=== PATIENT | female | born 1950 | race Caucasian/White ===

== ENCOUNTER → 2018-05-19 14:44 | Outpatient (CLI) | payer MEDICARE, SELFPAY ==
--- NOTE | 2018-05-19 | DI.MG.S_ITS ---
BILATERAL DIGITAL SCREENING MAMMOGRAM 3D/2D WITH CAD: 05/19/2018 CLINICAL: Routine screening. Family history of breast cancer. Comparison is made to exams dated: 04/30/2017 mammogram, 04/08/2016 mammogram, and 04/06/2015 mammogram - [facility]. There are scattered fibroglandular elements in both breasts. Current study was also evaluated with a Computer Aided Detection (CAD) system. No significant masses, calcifications, or other findings are seen in either breast. There has been no significant interval change. IMPRESSION: NEGATIVE There is no mammographic evidence of malignancy. A 1 year screening mammogram is recommended. This exam was interpreted at Station ID: [id number]. NOTE: For mammograms, a report in lay terms will be sent to the patient. Approximately 15% of breast malignancies will not be visualized mammographically. In the management of a palpable breast mass, a negative mammogram must not discourage biopsy of a clinically suspicious lesion. Electronically Signed By: Jose ye/sanford:05/20/2018 00:34:32 letter sent: Normal Exam ACR BI-RADS Category 1: Negative [id number]
== END ==
PROVIDERS: Family Provider Family Medicine; PCP Family Medicine; Visit Provider Family Medicine
DX: Z12.31 Encounter for screening mammogram for malignant neoplasm of breast (principal); Z80.3 Family history of malignant neoplasm of breast
CPT/HCPCS: 77063; 77067

== ENCOUNTER → 2018-07-08 11:17 | Outpatient (CLI) | payer MEDICARE, SELFPAY ==
--- NOTE | 2018-07-08 11:27 | DI.RAD.S_ITS ---
PROCEDURE: XR LUMBAR SPINE MIN 4V INDICATIONS: Spinal stenosis, site unspecified TECHNIQUE: 5 views of the lumbar spine were acquired. COMPARISON: None. FINDINGS: Bones: No fracture or focal osseous destruction. Severe diffuse facet arthropathy. Grade I anterolisthesis of L4 on L5. There is dextrocurvature centered at L2. [id number] diffuse lumbar disc space narrowing throughout the lumbar spine. Endplate spurring and sclerosis is noted.. Soft tissues: Overlying bowel gas pattern is normal. No suspicious soft tissue calcifications. Oblique images: No pars defects. IMPRESSION: Diffuse mild to moderate lumbar disc degeneration and dextrocurvature centered at L2. Multilevel facet arthropathy. Dictated by: Rafal Jha M.D. on 07/08/2018 at 14:41 Approved by: Rafal Jha M.D. on 07/08/2018 at 14:43
== END ==
PROVIDERS: PCP Family Medicine; Visit Provider Physical Medicine & Rehabilitation
DX: M47.817 Spondylosis without myelopathy or radiculopathy, lumbosacral region (principal); M47.816 Spondylosis without myelopathy or radiculopathy, lumbar region; M48.061 Spinal stenosis, lumbar region without neurogenic claudication; M43.16 Spondylolisthesis, lumbar region; F43.10 Post-traumatic stress disorder, unspecified; E66.9 Obesity, unspecified; Z68.39 Body mass index [BMI] 39.0-39.9, adult
CPT/HCPCS: 72110; 99214

== ENCOUNTER → 2018-07-15 12:45 | Outpatient (CLI) | payer MEDICARE, SELFPAY ==
--- NOTE | 2018-07-15 13:14 | DI.MRI.S_ITS ---
PROCEDURE: MR LUMBAR SPINE WO CON INDICATIONS: Eval TECHNIQUE: Noncontrast sagittal T1 spin echo and T2 fast echo, sagittal STIR, axial T1 and T2 fast spin echo through the lumbar spine. In cases with scoliosis, additional coronal T2 fast spin echo may be performed. COMPARISON: None. FINDINGS: Image quality: Excellent. Alignment and Curvature: There is normal bony alignment. Bone Marrow: Severe L5-S1 disc degeneration and associated endplate signal change No acute vertebral body compression fractures. Spinal Cord: Conus medullaris terminates at the L2 level. Visualized cord demonstrates normal signal and size. Paraspinous Soft Tissues: No paravertebral masses. Mild posterior disc bulge at T11-T12. L1-L2: Bilateral facet disease. No foraminal stenosis. No canal stenosis. L2-L3: Minimal broad-based posterior disc bulge bilateral facet disease. No canal stenosis. No foraminal narrowing. L3-L4: Broad-based posterior disc bulge, posterior annular fissure and bilateral facet arthropathy. No central canal stenosis. There is also a symmetric partial effacement of the left and right lateral recesses, no definite foraminal narrowing. L4-L5: Broad-based left lateral disc bulge. Bilateral facet arthropathy. There is mild canal narrowing due in part due to dorsal epidural lipomatosis. Mild asymmetric left lateral recess narrowing. Mild left foraminal stenosis, and is no right foraminal narrowing. L5-S1: Central disc osteophyte complex with no definite canal narrowing. Lateral recesses appear patent. Moderate right and mild left foraminal stenosis. IMPRESSION: No high-grade canal stenosis. Moderate right L5-S1 foraminal narrowing. Dictated by: Rafal Jha M.D. on 07/15/2018 at 14:08 Approved by: Rafal Jha M.D. on 07/15/2018 at 14:37
== END ==
PROVIDERS: PCP Family Medicine; Visit Provider Physical Medicine & Rehabilitation
DX: M47.817 Spondylosis without myelopathy or radiculopathy, lumbosacral region (principal); M48.07 Spinal stenosis, lumbosacral region; M51.26 Other intervertebral disc displacement, lumbar region
CPT/HCPCS: 72148

== ENCOUNTER 2018-08-10 12:26 | Outpatient (CLI) | payer MEDICARE, SELFPAY ==
[2018-08-10] VITALS (9 sets, daily range): BP systolic 117–153; BP diastolic 53–72; PULSE 51–64; RESP 11–20; TEMP 36.2; O2SAT 93–97
--- NOTE | 2018-08-10 12:28 | DI.RAD.S_ITS ---
PROCEDURE: PAIN L/SI FACET INJ/BLK 1STL INDICATIONS: SPONDYLOSIS FINDINGS: Fluoroscopic spot filming was performed to verify placement of spinal needles at the L4-L5 and L5-S1 level(s), as labeled on the films. Appropriate location(s) of the needle tip(s) was confirmed by injection of iodinated contrast. Dictated by: Rafal Jha M.D. on 08/10/2018 at 16:47 Approved by: Rafal Jha M.D. on 08/10/2018 at 16:49
[2018-08-10] MEDS: MIDAZOLAM 5 MG/5 ML VIAL IV (13:12)
[2018-08-10] MEDS: IOPAMIDOL 15 ML VIAL 3 ML INJ (13:24)
[2018-08-10] MEDS: BUPIVACAINE 0.5% (PF) VIAL 2 ML INJ (13:24)
[2018-08-10] MEDS: BETAMETHASONE 30 MG/5 ML MDV 12 MG INJ (13:25)
[2018-08-10] MEDS: LIDOCAINE 1% 20 ML INJ 10 ML INJ (13:25)
--- NOTE | 2018-08-10 13:33 | PC.NURSE ---
pt finished procedure, tolerated it well. minimal assist needed to get from table to Wheelchair. Taken to pre procedure room via w/c and handed off to Krista DIAZ for continued monitoring.
--- NOTE | 2018-08-11 12:51 | PC.NURSE ---
FOLLOW UP CALL MADE. PT STATES PAIN HAS INCREASED SINCE LAST NIGHT BUT DECREASED SINCE THIS AM. I EXPLAINED THAT INCREASED PAIN AFTER THE PROCEDURE IS COMMON FOR THE 1ST 24 HRS. PT ALSO STATED THAT SHE HAD INSOMNIA LAST NIGHT BUT ALSO THE SHE UNDERSTANDS THIS IS A COMMON SIDE EFFECT EXPLAINED TO HER. DENIES OTHER CONCERNS.
--- NOTE | 2018-08-17 15:56 | P.PCN_ITS ---
Procedures Date/Time Date of procedure: 08/10/18 Time of procedure: 14:28 General Procedure description: PREOP DIAGNOSIS 1. FACET ARTHROPATHY 2. AXIAL LBP 3. MULTILEVEL DDD POST OP DIAGNOSIS 1. FACET ARTHROPATHY 2. AXIAL LBP 3. MULTILEVEL DDD PROCEDURES 1. FLUORSCOPICALLY GUIDED CONTRAST CONTROLLED FACET JOINT INJECTIONS BILATERAL L4/5, L5/S1 PHYSICIAN: Hugh Carolina, DO INDICATIONS Belem is referred by Dr. Cat for treatment of Axial LBP FINDINGS Multilevel Facet Arthropathy with Clinically significant axial LBP DESCRIPTION OF PROCEDURE Fluoroscopically guided, contrast-controlled bilateral L4/5, L5/S1 facet joint injections. Following denial of allergy and review of potential side effects and complications, including, but not necessarily limited to, infection, allergic reaction, local tissue breakdown, stroke, temporary or permanent nerve injury, paralysis, and possible , the patient indicated that the patient understood and agreed to proceed. An informed consent document was signed by the patient, witnessed by a nurse, and placed in the patient's chart. Additionally, other treatment options including medications, modalities, and physical therapy were reviewed with the patient. After review of previous anaesthesic history and IV conscious sedation the patient was deemed safe to proceed with todays procedure with IV conscious sedation as ASA class II designation. Safety time-out was performed to confirm patient ID, procedure to be performed and site of procedure. IV sedation was accomplished with a combination of 3mg was administered by the RN after DO order , titrated to patient comfort during the course of the procedure while the patient remained responsive to all verbal commands In the prone position, following sterile prep and drape of the lumbar region, the posterior aspect of the L4/5, L5/S1 facet joints were identified fluoroscopically. The skin was anesthetized via a 25-gauge 1.5-inch needle with 1% lidocaine solution into the corresponding facet joints. At this point, a 22-gauge 3.5-inch spinal needle was atraumatically introduced and advanced under fluoroscopic guidance into the corresponding facet joints. Following negative aspiration, injections of approximately 0.2-cc of Isovue 200 confirmed interarticular placement without vascular uptake. The identical procedure was then performed at the L4/5, L5/S1 facet joints on the left. Radiological data, including multiple fluoroscopic views of the lumbosacral spine, reveal a spinal needle at the L4/5, L5/S1 facet joints bilaterally. Subsequent views show flow of contrast material both superiorly and inferiorly within the joint space without vascular or intrathecal uptake. At this point, a total of 0.5 cc including a mixture of 0.25cc Marcaine and 0.25cc betamethasone was injected without complication into each of the corresponding facet joints. The patient tolerated the procedure well without signs or symptoms of complications prior to transfer to the recovery area continued monitoring without incident. The patient was then transferred to the recovery area where they were observed for an appropriate period of time after the injection. The patient reported a VAS score of 7 prior to the procedure and a post- procedure VAS of 0. Total Fluoroscopy Time: 20.3 seconds Total Conscious Sedation Time: 24min POST OP INSTRUCTIONS The patient was provided a Pain Log to continue to record their response to the target-specific procedure prior to follow-up visit with their referring physician. Additionally, specific post-injection care instructions and a contact number to our office were provided if concerns arise regarding possible complications associated with the procedure are suspected. Hugh Carolina, Complications: none
== END 2018-08-10 14:06 | disposition home or self-care (01) ==
LOC: RAD 12:28
PROVIDERS: PCP Family Medicine; Visit Provider Physical Medicine & Rehabilitation
DX: M47.817 Spondylosis without myelopathy or radiculopathy, lumbosacral region (principal); M51.36 Other intervertebral disc degeneration, lumbar region; M51.37 Other intervertebral disc degeneration, lumbosacral region; M48.062 Spinal stenosis, lumbar region with neurogenic claudication; M54.5 Low back pain
CPT/HCPCS: 64493; 64494; 99152; J0702; J2250

== ENCOUNTER 2018-11-10 09:40 | Outpatient (CLI) | payer MEDICARE, SELFPAY ==
[2018-11-10] VITALS (8 sets, daily range): BP systolic 95–137; BP diastolic 59–80; PULSE 59–66; RESP 16–18; TEMP 36.5; O2SAT 93–96
--- NOTE | 2018-11-10 09:42 | DI.RAD.S_ITS ---
PROCEDURE: PAIN L/SI FACET INJ/BLK 1STL INDICATIONS: SPONDYLOSIS FINDINGS: Fluoroscopic spot filming was performed to verify placement of spinal needles at the L4, L5, S1 level(s), as labeled on the films. Appropriate location(s) of the needle tip(s) was confirmed by injection of iodinated contrast. Dictated by: Rafal Jha M.D. on 11/10/2018 at 17:24 Approved by: Rafal Jha M.D. on 11/10/2018 at 17:25
[2018-11-10] MEDS: MIDAZOLAM 5 MG/5 ML VIAL IV (10:05)
[2018-11-10] MEDS: fentaNYL 100 MCG/2 ML INJ 50 MCG IV (10:05)
[2018-11-10] MEDS: IOPAMIDOL 15 ML VIAL 3 ML INJ (10:14)
[2018-11-10] MEDS: BUPIVACAINE 0.5% (PF) VIAL 2 ML INJ (10:14)
[2018-11-10] MEDS: LIDOCAINE 1% 20 ML INJ INJ (10:15)
[2018-11-10] MEDS: BETAMETHASONE 30 MG/5 ML MDV 12 MG INJ (10:15)
--- NOTE | 2018-11-10 10:34 | P.PCN_ITS ---
Procedures Date/Time Date of procedure: 11/10/18 Time of procedure: 10:33 General Procedure description: Procedure description: 1. FACET ARTHROPATHY PROCEDURES: 1. BILATERAL- L4, L5 and S1 MB BLOCKS PHYSICIAN: Hugh Carolina, DO SPAULDING Belem is referred by Dr. Cat for treatment of Bilateral Axial LBP. DESCRIPTION OF PROCEDURE Fluoroscopically guided, contrast-controlled bilateral L4, L5 and S1 medial branch blocks with 0.5cc of 0.5% Marcaine. Following denial of allergy and review of potential side effects and complications, including, but not necessarily limited to, infection, allergic reaction, local tissue breakdown, nerve injury, paralysis, stroke and possible , the patient indicated that the patient understood and agreed to proceed. An informed consent document was signed by the patient, witnessed by a nurse, and placed in the patient's chart. After review of previous anaesthesic history and IV conscious sedation the patient was deemed safe to proceed with todays procedure with IV conscious se dation as ASA class II designation. Safety time-out was performed to confirm patient ID, procedure to be performed and site of procedure. IV sedation was accomplished with a combination of 3mg of Versed and 50mcg of Fentanyl was administered by the RN after DO order, titrated to patient comfort during the course of the procedure while the patient remained responsive to all verbal commands In the prone position, following sterile prep and drape of the lumbar region, the right L4, L5 and S1 anatomical location of the medial branch of the dorsal ramus was identified fluoroscopically. Subsequently an anesthetic skin wheal using 1% lidocaine solution was initiated at each of the anatomical spots. Subsequently then a 22-gauge 3.5-inch spinal needle was atraumatically introduced and advanced under fluoroscopic guidance at each of the corresponding sites at the right L4, L5 and S1 MB. After negative aspiration, 0.2 cc of Isovue 200 was injected, confirming placement without vascular or intrathecal uptake. Subsequently then 0.5 cc of 0.5% Marcaine solution was injected at each of the corresponding sites at the right L4, L5 and S1 medial branch locations. The identical procedure was replicated on the left. The patient tolerated the procedure well without signs or symptoms of complications prior to transfer to the recovery area continued monitoring without incident. Post-procedure, the patient was monitored initiating provocative activities to measure the amount of relief from block of the facetogenic pain. The patient reported a VAS of 7 prior to the procedure and a post-procedure VAS of 1. It has been a pleasure to assist in the diagnostic and therapeutic care of your patient. Total Fluoroscopy Time: 24.8 seconds Total Conscious Sedation Time: 24min POST OP INSTRUCTIONS The patient was provided with a Pain Log to complete over the next several hours and subsequent days prior to the patient's follow up with the ordering physician. If the patient has educational psychology professor relief to the solution applied, then they may be a candidate for medial branch rhizotomy. The patient is aware, was provided, once again, with a Pain Log and will follow up with the referring physician for review and clinical correlation Hugh Carolina DO Complications: none
--- NOTE | 2018-11-10 10:34 | PC.NURSE ---
pt tolerated procedure well. Able to get off table on own with stand by assist. Transferred patient via w/c to pre procedure room for continued monitoring with Krista DIAZ.
== END 2018-11-10 10:54 | disposition home or self-care (01) ==
LOC: RAD 09:41
PROVIDERS: PCP Family Medicine; Visit Provider Physical Medicine & Rehabilitation
DX: M47.817 Spondylosis without myelopathy or radiculopathy, lumbosacral region (principal)
CPT/HCPCS: 64493; 64494; 99152; J0702; J2250; J3010

== ENCOUNTER 2019-01-11 11:08 | Outpatient (CLI) | payer MEDICARE, SELFPAY ==
[2019-01-11] VITALS (11 sets, daily range): BP systolic 115–142; BP diastolic 65–82; PULSE 67–86; RESP 16–18; TEMP 36.1; O2SAT 93–98
--- NOTE | 2019-01-11 11:10 | DI.RAD.S_ITS ---
PROCEDURE: PAIN L/S MED/LAT N RFA INDICATIONS: SPONDYLOSIS FINDINGS: Fluoroscopic spot filming was performed to verify placement of spinal needles at the L4, L5 and S1 level(s), as labeled on the films. Appropriate location(s) of the needle tip(s) was confirmed by injection of iodinated contrast. IMPRESSION: Fluoroscopy for pain management. Dictated by: Antonio Barr M.D. on 01/11/2019 at 12:58 Approved by: Antonio Barr M.D. on 01/11/2019 at 12:58
[2019-01-11] MEDS: MIDAZOLAM 5 MG/5 ML VIAL IV (11:56)
[2019-01-11] MEDS: BETAMETHASONE 30 MG/5 ML MDV 12 MG INJ (12:18)
[2019-01-11] MEDS: BUPIVACAINE 0.5% (PF) VIAL 2 ML INJ (12:18)
[2019-01-11] MEDS: LIDOCAINE 1% 20 ML INJ 10 ML INJ (12:18)
--- NOTE | 2019-01-11 12:31 | PC.NURSE ---
ASSISTING PT OFF TABLE AND TRANSPORTING TO POST PROC AREA IN STABLE CONDITION
--- NOTE | 2019-01-11 12:40 | P.PCN_ITS ---
Procedures Date/Time Date of procedure: 01/11/19 Time of procedure: 12:37 General Procedure description: PREOP DIAGNOSIS 1. RECALCITRANT FACET ARTHROPATHY, POST OP DIAGNOSIS 1. RECALCITRANT FACET ARTHROPATHY, PROCEDURES 1. RIGHT L4 AND L5 MEDIAL BRANCH RADIOFREQUENCY NEUROTOMY AND RIGHT S1 DORSAL RAMUS BRANCH RADIOFREQUENCY NEUROTOMY, SURGEON: Hugh Carolina, DO INDICATIONS Belem is referred by for treatment of facet arthropathy. DESCRIPTION OF PROCEDURE Right L4 and L5 medial branch radiofrequency neurotomy and right S1 dorsal ramus branch radiofrequency neurotomy under fluoroscopy with conscious sedation. The patient is well known to this clinic having undergone previous facet injections with good but temporary relief. The patient has experienced appropriate, concordant relief with previous facet and median branch blocks but the patient's pain has been recalcitrant to further conservative measures. Therefore, based upon the patient's relief and persistent symptoms, the patient is considered an appropriate candidate for facet rhizotomy. All of the patient's questions regarding the risks versus benefits of the procedure, including, but not limited to, bleeding, infection, temporary as well as lasting nerve injury, paralysis, stroke, and , as well treatment alternatives were answered to satisfaction. After review of previous anaesthesic history and IV conscious sedation the patient was deemed safe to proceed with todays procedure with IV conscious sedation as ASA class II designation. Safety time-out was performed to confirm patient ID, procedure to be performed and site of procedure. IV sedation was accomplished with a combination of 4mg of Versed was administered by the RN after DO order, titrated to patient comfort during the course of the procedure while the patient remained responsive to all verbal commands. After obtaining informed consent, denial of pertinent drug allergies, as well as being made aware of the potential risks of bleeding, infection, spinal cord trau ma, paralysis, temporary and permanent nerve damage, seizure, stroke, and possible , the patient was brought to the fluoroscopy suite and positioned prone on the fluoroscopy table. The lumbar region was prepped with Betadine and covered with a fenestrated drape in the usual sterile fashion. Appropriate monitors applied including pulse oximeter, pulse, and blood pressure for regular monitoring throughout the procedure. After local infiltration using 1% lidocaine, under fluoroscopic guidance, a 15- cm RF insulated needle with a 10-mm active tip was positioned parallel to the junction of the right sacral ala and the superior articulating process where the S1 dorsal ramus resides. Needle placement was confirmed with sensory stimulation at 50 Hz, with motor stimulation of .5v on the right which produced local stimulation without radicular component. The stimulation was then increased to 1.5v with, once again, only local multifidus stimulation without radicular component. This was then followed by two discreet lesions performed at 80 degrees Celsius for 90 seconds each. The needle was then removed and the identical procedure was performed along the length of the right L5 medial branch with motor stimulation at .7v on the right. The identical procedure was once again performed along the length of the right L4 medial branch with motor stimulation of .5v on the right. The patient tolerated the procedure well without signs or symptoms of complications prior to transfer to the recovery area continued monitoring without incident. The patient was then transferred to the recovery area where they were observed for an appropriate period of time after the injection. The patient was then transferred to the recovery area where they were observed for an appropriate period of time after the injection. The patient reported a VAS score of 9 prior to the procedure and a post- procedure VAS of 0. Total Fluoroscopy Time: 31 seconds Total Conscious Sedation Time: 45min POST OP INSTRUCTIONS The patient was provided a Pain Log to continue to record the patient's response to the target-specific procedure prior to the patient's follow-up visit with the referring physician. Additionally, specific post-injection care instructions and a contact number to our office were provided if concerns arise regarding possible complications associated with the procedure are suspected. Hugh Carolina DO Complications: none
--- NOTE | 2019-01-11 13:22 | PC.NURSE ---
Pt returned from procedure awake and alert, able to move from W/C to chair with minimal assist. Resumed monitoring from Krista DIAZ.
--- NOTE | 2019-01-12 16:23 | PC.NURSE ---
Follow up call made post Rhizotomy. Pt reports doing good. Said she was doing dishes at the sink and had a slight twinge but it went away. Otherwise she is doing well.
== END 2019-01-11 12:59 ==
LOC: RAD 11:09
PROVIDERS: PCP Family Medicine; Visit Provider Physical Medicine & Rehabilitation
DX: M47.817 Spondylosis without myelopathy or radiculopathy, lumbosacral region (principal)
CPT/HCPCS: 64635; 64636; 99152; J0702; J2250; J3010

== ENCOUNTER → 2019-02-24 16:43 | Outpatient (CLI) | payer MEDICARE, SELFPAY ==
--- NOTE | 2019-02-24 16:47 | DI.MRI.S_ITS ---
PROCEDURE: MR CERVICAL SPINE WO CON INDICATIONS: Bilateral shoulder soreness. Right 3-5th digit numbness TECHNIQUE: Noncontrast sagittal T1 spin echo and T2 fast spin echo, sagittal STIR, foraminal oblique sagittal T2 fast spin echo, and axial gradient echo or T2 fast spin echo through the cervical spine. COMPARISON: None. FINDINGS: Image quality: Excellent. Alignment and Curvature: There is a trace amount approximately 1 mm of C6-C7 and C7-T1 anterolisthesis. Bone Marrow: Marrow demonstrates normal overall signal. Spinal Cord: Visualized spinal cord has normal size and signal. No cerebellar tonsillar herniation. Paraspinous Soft Tissues: No paravertebral masses. Prevertebral soft tissues are normal in thickness. C2-C3: Normal appearance. C3-C4: Slight loss of disc signal. Minimal, diffuse disc bulge. Mild right and moderate left facet hypertrophy. No central stenosis. Mild right and moderate left neural foraminal narrowing. No neural impingement. C4-C5: Loss of disc signal. Moderate right and mild left facet hypertrophy. No central stenosis. Mild bilateral neural foraminal narrowing. No neural impingement. C5-C6: Loss of disc signal. Mild, diffuse disc bulge. Small central disc protrusion. Mild bilateral facet hypertrophy. No central stenosis. Mild bilateral neural foraminal narrowing. No neural impingement. C6-C7: Loss of disc signal. Mild, diffuse disc bulge. Small central disc protrusion. Mild bilateral facet hypertrophy. No central stenosis. Mild left neural foraminal narrowing. No neural impingement. C7-T1: Loss of disc signal. Mild, diffuse disc bulge. Moderate right facet hypertrophy. No central stenosis. Mild right neural foraminal narrowing. No neural impingement. IMPRESSION: 1. Multilevel degenerative disc disease 2. Multilevel facet arthropathy. 3. No central stenosis. 4. Mild right and moderate left C3-C4 neural foraminal narrowing. Mild bilateral C4-C5 and C5-C6 neural foraminal narrowing. Mild left C6-C7 neural foraminal narrowing. Mild right C7-T1 neural foraminal narrowing. 5. No neural impingement. Dictated by: Marialuisa Qureshi MD, PhD on 02/25/2019 at 8:40 Approved by: Marialuisa Qureshi MD, PhD on 02/25/2019 at 8:45
== END ==
PROVIDERS: PCP Family Medicine; Visit Provider Registered Nurse
DX: M25.511 Pain in right shoulder (principal); M25.512 Pain in left shoulder; M50.322 Other cervical disc degeneration at C5-C6 level; M47.812 Spondylosis without myelopathy or radiculopathy, cervical region; M48.02 Spinal stenosis, cervical region
CPT/HCPCS: 72141

== ENCOUNTER → 2019-07-16 09:55 | Outpatient (CLI) | payer MEDICARE, SELFPAY | PROVIDERS: PCP Family Medicine; Visit Provider Family Medicine | DX: Z12.31 Encounter for screening mammogram for malignant neoplasm of breast (principal); Z53.9 Procedure and treatment not carried out, unspecified reason ==

== ENCOUNTER → 2019-08-10 10:04 | Outpatient (CLI) | payer MEDICARE, SELFPAY ==
--- NOTE | 2019-08-10 | DI.US.S_ITS ---
ULTRASOUND OF RIGHT BREAST: 08/10/2019 CLINICAL: Focal right breast pain. Comparison is made to exams dated: 08/10/2019 mammogram, 05/19/2018 mammogram, 04/30/2017 mammogram, and 04/08/2016 mammogram - [facility]. Real-time ultrasound of the right breast was performed. Sena scale images of the real-time examination were reviewed. No significant abnormalities were seen sonographically in the right breast. IMPRESSION: BENIGN There is no sonographic evidence of malignancy. There is no abnormality seen in the right breast to correspond with the area of clinical concern, palpable abnormality, and pain at 3 o'clock in the middle depth, however, clinical followup is recommended for continued symptomatology. A 1 year screening mammogram is recommended. This exam was interpreted at Station ID: [id number]. Electronically Signed By: Johann Pope M.D. aty/:08/10/2019 11:05:36 letter sent: Normal Exam Ultrasound BI-RADS: 2 Benign
--- NOTE | 2019-08-10 | DI.MG.S_ITS ---
BILATERAL DIGITAL DIAGNOSTIC MAMMOGRAM 3D/2D: 08/10/2019 CLINICAL: Right breast lumps. Comparison is made to exams dated: 05/19/2018 mammogram, 04/30/2017 mammogram, 04/08/2016 mammogram, and 04/06/2015 mammogram - [facility]. There are scattered fibroglandular elements in both breasts. No significant masses, calcifications, or other findings are seen in either breast. IMPRESSION: INCOMPLETE: NEEDS ADDITIONAL IMAGING EVALUATION There is no abnormality seen in the right breast to correspond with the area of clinical concern, palpable abnormality, and pain at 3 o'clock in the middle depth, however, further evaluation with sonogram is recommended which is scheduled to immediately follow this examination. This exam was interpreted at Station ID: [id number]. NOTE: For mammograms, a report in lay terms will be sent to the patient. Approximately 15% of breast malignancies will not be visualized mammographically. In the management of a palpable breast mass, a negative mammogram must not discourage biopsy of a clinically suspicious lesion. Electronically Signed By: Johann Pope M.D. aty/:08/10/2019 11:04:07 ACR BI-RADS Category 0: Incomplete [id number]
== END ==
PROVIDERS: PCP Family Medicine; Visit Provider Physician Assistant Medical
DX: R92.8 Other abnormal and inconclusive findings on diagnostic imaging of breast (principal); N63.15 Unspecified lump in the right breast, overlapping quadrants; N64.4 Mastodynia
CPT/HCPCS: 76642; 77066; G0279

== ENCOUNTER → 2019-10-25 10:27 | Outpatient (CLI) | payer MEDICARE, SELFPAY ==
--- NOTE | 2019-10-25 10:31 | DI.RAD.S_ITS ---
PROCEDURE: XR CERVICAL SPINE 4V OR 5V INDICATIONS: axial cervical neck pain TECHNIQUE: 5 views of the cervical spine acquired. COMPARISON: [facility], MR, MR CERVICAL SPINE WO CON, 02/24/2019, 17:02. FINDINGS: Bones: No fractures or dislocations to the T2 level. Oblique images demonstrate mild bilateral bony foraminal stenoses which are most prominent at C3-4 and C4-5. No acute compression fractures. Moderate multilevel cervical spondylosis throughout the imaged spine with moderate to severe bilateral facet arthropathy. Soft tissues: No prevertebral soft tissue swelling. IMPRESSION: 1. Cervical spine without acute fracture or dislocation. 2. Moderate multilevel cervical spondylosis with moderate-severe facet arthropathy, and mild bilateral neuroforaminal stenosis. Dictated by: Johann Pope M.D. on 10/25/2019 at 16:07 Approved by: Johann Pope M.D. on 10/25/2019 at 16:11
== END ==
PROVIDERS: PCP Family Medicine; Referring Provider Registered Nurse; Visit Provider Registered Nurse
DX: M54.2 Cervicalgia (principal); M47.812 Spondylosis without myelopathy or radiculopathy, cervical region; M48.02 Spinal stenosis, cervical region; M47.817 Spondylosis without myelopathy or radiculopathy, lumbosacral region; M47.816 Spondylosis without myelopathy or radiculopathy, lumbar region; E66.9 Obesity, unspecified; M48.00 Spinal stenosis, site unspecified; F43.10 Post-traumatic stress disorder, unspecified
CPT/HCPCS: 72050; 99213

== ENCOUNTER → 2021-02-13 09:58 | Outpatient (CLI) | payer MEDICARE, SELFPAY ==
[2021-02-13 12:21] LABS: COVID19 -Nasal RAPID Negative (Negative)
== END ==
PROVIDERS: PCP Family Medicine; Visit Provider Student in an Organized Health Care Education/Training Program
DX: Z20.822 Contact with and (suspected) exposure to COVID-19 (principal)
CPT/HCPCS: 87635; C9803

== ENCOUNTER → 2021-02-14 13:23 | Outpatient (CLI) | payer MEDICARE, SELFPAY ==
--- NOTE | 2021-02-14 | DI.ECHO.S_ITS ---
[facility] +---------+ : : [address] : : : : [id number] : : : : Phone: [phone]---------+ Echocardiogram Report + + :Name: CARLTON CASILLAS Study Date: 02/14/2021 Height: 65 in : :[facility] ReadingLocation: Weight: 263 lb : : Gender: Female BSA: 2.2 m2 : :: 1950 Age: 70 yrs BP: 166/82 mmHg: :Reason For Study: Dyspnea : :Ordering Physician: RISHABH, : :JOEL Performed By: Henri Shearer : :Referring: JOEL KEATING : + + Interpretation Summary The left ventricle is normal in size and wall thickness. Left ventricular systolic function is normal. The ejection fraction is estimated to be 60-65%. There are no focal wall motion abnormalities. Diastolic parameters suggest a relaxation abnormality of the left ventricle, consistent with probable normal filling pressures. The right ventricle is normal in size and function. Pulmonary artery pressures cannot be estimated because of the lack of a measurable TR jet velocity but the IVC suggests a CVP of around 3 mmHg. Both atria are normal in size. There is no significant valvular heart disease. The aortic root is normal size. Procedure: A two-dimensional transthoracic echocardiogram with color flow and Doppler was performed. The study quality was technically adequate. There is no prior echocardiogram noted for this patient. The patient was in sinus rhythm with heart rates between 67-79 bpm during the exam. Left Ventricle: The left ventricle is normal in size and wall thickness. Left ventricular systolic function is normal. The ejection fraction is estimated to be 60-65%. There are no focal wall motion abnormalities. Diastolic parameters suggest a relaxation abnormality of the left ventricle, consistent with probable normal filling pressures. Right Ventricle: The right ventricle is normal in size and function. Atria: Both atria are normal in size. There is no Doppler evidence for an interatrial shunt. Mitral Valve: The mitral valve is normal in structure and function. There is no mitral regurgitation noted. Aortic Valve: The aortic valve is normal in structure and function. No aortic regurgitation is present. Tricuspid Valve: The tricuspid valve is normal in structure and function. There is a trace or physiologic amount of tricuspid regurgitation. Pulmonary artery pressures cannot be estimated because of the lack of a measurable TR jet velocity but the IVC suggests a CVP of around 3 mmHg. Pulmonic Valve: The pulmonic valve is not well visualized. There is no pulmonic valvular regurgitation. There is no significant valvular heart disease. Great Vessels: The aortic root is normal size. The dimensions of the ascending aorta are normal. The IVC is of normal diameter and collapses greater than 50% with a sniff. This suggests a low right atrial pressure of 3 mm Hg. Pericardium/ Pleura There is no pericardial effusion. There is no pleural effusion. MMode/2D Measurements & Calculations LVIDd: 5.3 cm LVOT diam: 2.4 cm LVIDs: 3.9 cm Ao root diam: 3.4 cm FS: 27.9 % asc Aorta Diam: 3.3 cm IVSd: 1.2 cm LVPWd: 0.96 cm LV snyedr. diameter/BSA (cm/m^2): 2.4 LV sys. diameter/BSA (cm/m^2): 1.7 LA A2 area: 11.4 cm2 RA area: 11.5 cm2 LA A4 area: 13.0 cm2 IVC diam: 1.4 cm LA length (vol): 4.1 cm LA vol: 30.9 ml LA vol index: 13.9 ml/m2 TAPSE: 2.1 cm Doppler Measurements & Calculations Ao V2 max: 136.8 cm/sec LVOT Max Enrrique: 99.9 cm/sec Ao V2 mean: 97.0 cm/sec LV V1 max P.0 mmHg Ao max P.5 mmHg LV V1 VTI: 16.3 cm Ao mean P.2 mmHg MARTIN(I,D): 2.9 cm2 Ao V2 VTI: 25.7 cm MARTIN(V,D): 3.4 cm2 sev ratio: 0.63 MARTIN indexed to BSA (cm^2/m^2): 1.3 MV E max enrrique: 54.8 cm/sec PA V2 max: 101.5 cm/sec MV A max enrrique: 62.4 cm/sec PA V2 mean: 70.0 cm/sec MV E/A: 0.88 PA mean P.2 mmHg Med Peak E' Enrrique: 5.8 cm/sec PA pr(Accel): 43.7 mmHg E/E' med: 9.5 Lat Peak E' Enrrique: 9.6 cm/sec E/E' lat: 5.7 E/e' average: 7.6 MV dec time: 0.20 sec SVLVOT): 75.8 ml Reading Physician:05:53 PM
== END ==
PROVIDERS: PCP Family Medicine; Referring Provider Physician Assistant Medical; Visit Provider Physician Assistant Medical
DX: R06.09 Other forms of dyspnea (principal)
CPT/HCPCS: 93017; 93306

== ENCOUNTER → 2021-08-26 15:29 | Outpatient (CLI) | payer MEDICARE, SELFPAY ==
--- NOTE | 2021-08-26 | DI.MG.S_ITS ---
BILATERAL DIGITAL SCREENING MAMMOGRAM 3D/2D WITH CAD: 08/26/2021 CLINICAL: Routine screening. Family history of breast cancer. Comparison is made to exams dated: 08/10/2019 ultrasound, 08/10/2019 mammogram, 05/19/2018 mammogram, and 04/30/2017 mammogram - [facility]. There are scattered fibroglandular elements in both breasts. Current study was also evaluated with a Computer Aided Detection (CAD) system. There are benign calcifications in both breasts. No significant masses, calcifications, or other findings are seen in either breast. There has been no significant interval change. IMPRESSION: BENIGN There is no mammographic evidence of malignancy. A 1 year screening mammogram is recommended. This exam was interpreted at Station ID: [id number]. NOTE: For mammograms, a report in lay terms will be sent to the patient. Approximately 15% of breast malignancies will not be visualized mammographically. In the management of a palpable breast mass, a negative mammogram must not discourage biopsy of a clinically suspicious lesion. Electronically Signed By: Ab Blackwell acr/penrad:08/26/2021 16:09:26 letter sent: Normal Exam ACR BI-RADS Category 2: Benign Finding(s) 3342F
== END ==
PROVIDERS: PCP Family Medicine; Referring Provider Family Medicine; Visit Provider Family Medicine
DX: Z12.31 Encounter for screening mammogram for malignant neoplasm of breast (principal); Z80.3 Family history of malignant neoplasm of breast
CPT/HCPCS: 77063; 77067

== ENCOUNTER → 2021-11-12 12:58 | Outpatient (CLI) | payer OTHER, SELFPAY ==
--- NOTE | 2021-11-12 13:06 | DIET.CONS ---
Dietary Consultation Note Assessment: 71y F with DM2 attending nutrition visit for help with managing BGs and for weight loss takes 500mg metformin , A1c 6.0 Pt would like to be able to walk better, has sciatic nerve problems limiting her ability to walk. has bilateral knee replacements. Does some chair exercises FBG 109-114, doesn't check daily Ht: 5'5 Wt: 270# BMI: UBW: pt has been over 250# for at least 5y Usual Day: B: banana in bowl cereal (Kellogs, 1 cup) with 2% milk 2 cups coffee c creamer Lunch: 1/2 [employer] sandwich, sometimes yogurt, sometimes cottage cheese, sometimes salad with tuna and balsamic Dinner: Mondays meals from [employer], gets hungry at 9pm feels she needs to drink more water Nutrition Diagnosis: morbid obesity r/t physical inactivity aeb pt with back and leg pain limiting exercise, pt noticed weight started increasing when activity level reduced, pt 270#. Interventions: 1. To support healthy weight and lean body mass, educated pt on role of physical activity. Pt lives near [facility], resources given for physical activity classes at both locations. Pt very interested in water aerobics and seated exercise class. 2. To address fact that pt stopped eating yogurt because of sugar content, provided added sugar education and practiced label reading. Pt will only choose yogurt with 0 grams added sugar. Monitoring/Evaluations: f/u in 8w Electronically Signed by: Valerie Shea 11/12/21 13:06 Clinical Dietitian [id number] [place] [address]
== END ==
PROVIDERS: PCP Family Medicine; Referring Provider Family Medicine; Visit Provider Family Medicine
DX: E11.9 Type 2 diabetes mellitus without complications (principal); Z79.84 Long term (current) use of oral hypoglycemic drugs
CPT/HCPCS: 97802

== ENCOUNTER → 2022-01-13 13:01 | Outpatient (CLI) | payer MEDICARE, SELFPAY ==
--- NOTE | 2022-01-13 13:05 | DIET.PN1 ---
Dietary Progress Note Pt signed up for 3d/w chair exercises at [facility] really enjoying the classes, joined pool but having trouble finding swimsuit she feels comfortable in. Pt curious about carb counting, doesn't seem to have a grasp on what to aim for during meals, did not purchase yogurt because none of them said lite, didn't think there were any low sugar yogurts at [employer]. Last Thursday FBG 100 Weight: 268# (-2# in 2mo) Interventions: 1. Discussed swimming suit as barrier to water aerobics. Pt s/p bilateral knee replacements. Went on appening and searched plus size [employer], pt excited to shop for this type of apparel. 2. Using food label examples, educated pt on reading labels for serving size, kcals, carbs, added sugars, and sugar alcohols. Pt will aim for 45g CHO at meals. Pt will go to store and shop again for yogurts with this new information. f/u in 2mo to continue teaching. Electronically Signed by: Valerie Shea 01/13/22 13:05 Clinical Dietitian [address] [id number]
== END ==
PROVIDERS: PCP Family Medicine; Referring Provider Family Medicine; Visit Provider Family Medicine
DX: Z71.3 Dietary counseling and surveillance (principal)
CPT/HCPCS: 97803

== ENCOUNTER → 2024-02-25 | Outpatient (CLI) | payer MEDICARE, SELFPAY ==
--- NOTE | 2024-02-25 08:38 | DI.MRI.S_ITS ---
PROCEDURE: MR CERVICAL SPINE WO CON INDICATIONS: SPONDYLOSIS WO MYELOPATHY OR RADICULOPATHY TECHNIQUE: Noncontrast sagittal T1 spin echo and T2 fast spin echo, sagittal STIR, foraminal oblique sagittal T2 fast spin echo, and axial gradient echo or T2 fast spin echo through the cervical spine. COMPARISON: [facility], MR, MR CERVICAL SPINE WO CON, 02/24/2019, 17:02. FINDINGS: Image quality: Excellent. Alignment and Curvature: Minimal anterolisthesis of C6 on C7 and C7 on T1 is stable. Bone Marrow: Marrow demonstrates normal overall signal. Spinal Cord: Visualized spinal cord has normal size and signal. No cerebellar tonsillar herniation. Paraspinous Soft Tissues: No paravertebral masses. Prevertebral soft tissues are normal in thickness. C2-C3: Normal appearance. C3-C4: Disc desiccation and minimal posterior disc osteophyte complex. No central canal stenosis. Facet and uncovertebral arthropathy. Mild right and moderate left neural foraminal stenosis is stable. C4-C5: Disc desiccation. No central canal stenosis. Facet uncovertebral arthropathy. Stable mild bilateral neural foraminal stenosis. C5-C6: Disc desiccation. No central canal stenosis. Facet and uncovertebral arthropathy. Stable mild bilateral neural foraminal stenosis. C6-C7: Disc desiccation. No central canal stenosis. Facet and uncovertebral arthropathy. Mild left and no right neural foraminal stenosis. C7-T1: No central canal or neural foraminal stenosis. IMPRESSION: Mild multilevel degenerative changes of the cervical spine are stable in appearance compared to prior. Dictated by: Adolfo Lay M.D. on 02/25/2024 at 10:58 Approved by: Adolfo Lay M.D. on 02/25/2024 at 11:09
== END ==
LOC: MRI 08:36
PROVIDERS: PCP Nurse Practitioner Family; Referring Provider Physical Medicine & Rehabilitation; Visit Provider Physical Medicine & Rehabilitation
DX: M47.812 Spondylosis without myelopathy or radiculopathy, cervical region (principal)
CPT/HCPCS: 72141